=== PATIENT | male | born 1960 | race Caucasian/White ===

== ENCOUNTER 2024-01-29 16:48 | Emergency (ER) | payer BC ==
[~2024-01-29] VITALS: Ht 182.9 cm; Wt 95.3 kg
[~2024-01-29 16:48] MED LIST: CIPRO500 MG PO; FLAGYL250 MG PO; FLAGYL375 MG PO; LEVAQUIN500 MG PO; LISINOPRIL10 MG PO; LOSARTAN POTASS25 MG PO; METFORMIN HCL500 MG PO; PANTOPRAZOLE SO40 MG PO; PAXLOVID 300-11 EAC1 PO; PROMETHAZINE HC25 M1 PO
[2024-01-29 19:13] VITALS: PULSE 71; RESP 17; TEMP 98.1
[2024-01-29] MEDS: SODIUM CHLORIDE 0.9% 1000ML 1,000 ML IV ONE (19:23)
[2024-01-29 19:39] LABS: BASOPHILS # (AUTO) 0.1 (0.0-0.1); BASOPHILS % 1.2 % (0.0-1.0); EOSINOPHILS # (AUTO) 0.2 (0.0-0.4); EOSINOPHILS % 3.5 % (0.0-6.0); HEMATOCRIT 47.6 % (38.2-49.6); HEMOGLOBIN 15.9 g/dL (14.0-18.0); LYMPHOCYTES # (AUTO) 1.6 (1.0-3.2); LYMPHOCYTES % 27.2 % (18.0-39.1); MEAN CORPUSCULAR HEMOGLOBIN 30.9 pg (28-32); MEAN CORPUSCULAR HGB CONC 33.4 g/dL (31-35); MEAN CORPUSCULAR VOLUME 92.4 fL (81-99); MONOCYTES # (AUTO) 0.6 (0.2-0.8); MONOCYTES % 10.8 % (4.4-11.3); NEUTROPHILS # (AUTO) 3.4 (2.1-6.9); NEUTROPHILS % 56.8 % (38.7-80.0); PLATELET COUNT 303 x10e3/uL (140-360); RED BLOOD COUNT 5.15 x10e6/uL (4.3-5.7); WHITE BLOOD COUNT 5.95 x10e3/uL (4.8-10.8)
[2024-01-29 19:53] LABS: ALBUMIN 3.9 g/dL (3.5-5.0); ALBUMIN/GLOBULIN RATIO 1.3 (0.8-2.0); ANION GAP 18.3 mmol/L (8-16); BILIRUBIN,TOTAL 0.6 mg/dL (0.2-1.2); CALCIUM 9.2 mg/dL (8.4-10.2); CREATININE, SERUM 1.03 mg/dL (0.72-1.25); POTASSIUM 4.3 mmol/L (3.5-5.1); TOTAL PROTEIN 6.8 g/dL (6.5-8.1)
[2024-01-29 20:02] LABS: BILIRUBIN,URINE NEGATIVE (NEGATIVE); CLARITY,URINE SL CLOUDY (CLEAR); COLOR,URINE YELLOW (YELLOW); GLUCOSE, URINE NEGATIVE (NEGATIVE); KETONES,URINE NEGATIVE (NEGATIVE); LEUKOCYTE ESTERASE ,URINE NEGATIVE (NEGATIVE); NITRITE,URINE NEGATIVE (NEGATIVE); PH,URINE 5.5 (5 - 7); PROTEIN,URINE DIPSTICK NEGATIVE (NEGATIVE); URINE UROBILINOGEN 0.2 mg/dL (0.2 - 1)
[2024-01-29] MEDS ORDERED: IOPAMIDOL 370 MG/ML 100 ML INFUS..BTL INJ ONE (20:06)
[2024-01-29 20:12] LABS: MUCUS,URINE MODERATE (RARE)
[2024-01-29 21:25] VITALS: BP 101/79; PULSE 97; RESP 19; TEMP 98.1; O2SAT 97
== END 2024-01-29 21:33 | disposition home or self-care (01) ==
LOC: ER 19:05
DX: R10.31 Right lower quadrant pain (principal); K65.4 Sclerosing mesenteritis; K57.90 Diverticulosis of intestine, part unspecified, without perforation or abscess without bleeding; I10 Essential (primary) hypertension; E11.9 Type 2 diabetes mellitus without complications; E78.5 Hyperlipidemia, unspecified; K76.0 Fatty (change of) liver, not elsewhere classified
CPT/HCPCS: 36415; 74177; 80053; 81001; 85025; 99284; J7030; Q9967

== ENCOUNTER → 2024-03-11 | Day surgery (SDC) | payer BC ==
[~2024-03-11] MED LIST changes: +HYOSCYAMINE SULFATE 0.5 MG/ML INJ ONE; +PROPOFOL IV EMULSION 50 ML IV ONE
[2024-03-11] MEDS: LACTATED RINGER'S 1,000 ML ONE (06:25)
[2024-03-11 09:05] VITALS: BP 117/98; PULSE 98; RESP 16; TEMP 97.6; O2SAT 95
== END | disposition home or self-care (01) ==
LOC: OR 05:47
PROVIDERS: ATTEND Internal Medicine Gastroenterology
DX: Z12.11 Encounter for screening for malignant neoplasm of colon (principal); K63.5 Polyp of colon; Z87.19 Personal history of other diseases of the digestive system; K57.30 Diverticulosis of large intestine without perforation or abscess without bleeding; K64.8 Other hemorrhoids; K21.9 Gastro-esophageal reflux disease without esophagitis; I10 Essential (primary) hypertension; E11.9 Type 2 diabetes mellitus without complications; Z01.810 Encounter for preprocedural cardiovascular examination; Z79.84 Long term (current) use of oral hypoglycemic drugs; Z79.899 Other long term (current) drug therapy
CPT/HCPCS: 45385; 93005; J1980; J2704; J7121; 45378